=== PATIENT | male | born 1950 | race Caucasian/White ===

== ENCOUNTER 2022-09-11 14:39 | Emergency (ER) | payer OTHER, BC ==
[~2022-09-11] VITALS: Ht 170.2 cm; Wt 63.0 kg
[2022-09-11 14:41] VITALS: BP 163/99
== END 2022-09-11 16:21 | disposition home or self-care (01) ==
LOC: ER 14:39
DX: M25.552 Pain in left hip (principal); I10 Essential (primary) hypertension; Z59.00 Homelessness unspecified; Z56.0 Unemployment, unspecified; Z88.8 Allergy status to other drugs, medicaments and biological substances
CPT/HCPCS: 72170; 99283

== ENCOUNTER 2023-02-17 18:59 | Inpatient (IN) | payer OTHER, BC ==
[~2023-02-17] VITALS: Ht 177.8 cm; Wt 64.2 kg
[2023-02-17 19:03] VITALS: TEMP 97.6
[2023-02-17 20:05] LABS: BASOPHILS # (AUTO) 0.1 X10'3 (0-0.2); BASOPHILS % (AUTO) 1.1 % (0-1); EOSINOPHILS # (AUTO) 0.3 X10'3 (0-0.9); EOSINOPHILS % (AUTO) 3.1 % (0-6); HEMOGLOBIN 13.6 g/dl (14.0-17.9); LYMPHOCYTES % (AUTO) 33.4 % (21-51); MEAN CORPUSCULAR HGB CONC 33.1 g/dL (33.0-36.5); MEAN CORPUSCULAR VOLUME 90.6 FL (78-98); MEAN PLATELET VOLUME 7.7 FL (7.4-10.4); MONOCYTES # (AUTO) 0.8 X10'3 (0-0.9); MONOCYTES % (AUTO) 9.3 % (2-12); NEUTROPHILS # (AUTO) 4.7 X10'3 (1.8-7.7); NEUTROPHILS % (AUTO) 53.1 % (42-75); PLATELET COUNT 232 X10'3 (140-440); RED BLOOD COUNT 4.53 X10'6 (4.70-6.10); RED CELL DISTRIBUTION WIDTH 14.6 % (11.5-14.5); WHITE BLOOD COUNT 8.8 X10'3 (4.5-11.0)
[2023-02-17 20:15] LABS: ALANINE AMINOTRANSFERASE 60 U/L (12-78); ALBUMIN 3.4 G/DL (3.4-5.0); ALBUMIN/GLOBULIN RATIO 0.8 (1.1-1.5); ALKALINE PHOSPHATASE 85 IU/L (46-116); ANION GAP 7 (8-16); ASPARTATE AMINO TRANSFERASE 56 U/L (10-37); BILIRUBIN,TOTAL 0.3 MG/DL (0.1-1.0); BLOOD UREA NITROGEN 22 MG/DL (7-18); BUN/CREATININE RATIO 13.5 (10.0-20.0); CALCIUM 8.9 MG/DL (8.5-10.1); CHLORIDE 107 MMOL/L (99-107); CREATININE 1.63 MG/DL (0.60-1.10); GLUCOSE 98 MG/DL (70-104); POTASSIUM 3.9 MMOL/L (3.5-5.1); SODIUM 140 MMOL/L (135-145); TOTAL CARBON DIOXIDE 26.4 MMOL/L (24-32); TOTAL PROTEIN 7.7 G/DL (6.4-8.2); eCRCL 36 ML/MIN; eGFR 42 ML/MIN
[2023-02-17 20:23] LABS: PRO BRAIN NATRIURETIC PEPTIDE 274 PG/ML (0-125)
[2023-02-17] MEDS ORDERED: furosemide 10 MG/1 ML 10ml inj IV ONE (23:20)
[2023-02-17] MEDS ORDERED: acetaminophen 325mg tablet PO ONE (23:20)
[2023-02-17] MEDS ORDERED: enalaprilat dihydrate 2.5mg/2ml vial IV ONE (23:20)
[2023-02-17] MEDS ORDERED: nicotine 21mg patch - 24 hr TD ONE (23:20)
[2023-02-18 00:51] LABS: URINE AMPHETAMINE SCREEN NEGATIVE (Neg); URINE BARBITUATE SCREEN NEGATIVE (Neg); URINE BENZODIAZEPINES SCREEN NEGATIVE (Neg); URINE CANNABINOID SCREEN NEGATIVE (Neg); URINE COCAINE SCREEN NEGATIVE (Neg); URINE OPIATE SCREEN NEGATIVE (Neg); URINE PHENCYCLIDINE SCREEN NEGATIVE (Neg)
--- NOTE | 2023-02-18 01:51 | NUR ---
400mL put, post lasix. Urine c/y malodrous.
[2023-02-18] MEDS ORDERED: ondansetron/PF 4mg/2ml inj IV PRN (03:40)
[2023-02-18] MEDS ORDERED: magnesium 2GM in 50ml NS 50 ML IV PRN (03:40)
[2023-02-18] MEDS ORDERED: hydrALAZINE 20mg/ml inj. IV PRN (03:40)
[2023-02-18] MEDS ORDERED: mag hydrox/Alum hydrox/simeth 30ml oral suspension PO PRN (03:40)
[2023-02-18] MEDS ORDERED: magnesium 4gm in 100ml NS 100 ML IV PRN (03:40)
[2023-02-18] MEDS ORDERED: potassium Cl 20 mEq SR tablet PO PRN ×2 (03:40)
[2023-02-18] MEDS ORDERED: potassium Cl 40MEQ/1/2NS 520ml 520 ML IV PRN (03:40)
[2023-02-18] MEDS ORDERED: acetaminophen 325mg tablet PO PRN (03:40)
--- NOTE | 2023-02-18 03:54 | NUR ---
Urine output 600mL
--- NOTE | 2023-02-18 06:24 | NUR ---
Assumed care of patient. Pt sitting up in bed, alert, oriented. RN helped pt reposition head of bed and decreased noise stimulation so pt could rest.
[2023-02-18] MEDS ORDERED: docusate sod 100mg capsule PO SCH (08:00)
[2023-02-18] MEDS ORDERED: K and/or MAG REPLACEMENT MC SCH (08:00)
--- NOTE | 2023-02-18 08:23 | NUR ---
pt eating breakfast
[2023-02-18 08:39] LABS: BASOPHILS # (AUTO) 0.1 X10'3 (0-0.2); BASOPHILS % (AUTO) 0.8 % (0-1); EOSINOPHILS # (AUTO) 0.2 X10'3 (0-0.9); HEMATOCRIT 41.5 % (42.0-52.0); HEMOGLOBIN 13.9 g/dl (14.0-17.9); LYMPHOCYTES # (AUTO) 2.2 X10'3 (1.1-4.8); LYMPHOCYTES % (AUTO) 27.6 % (21-51); MEAN CORPUSCULAR HEMOGLOBIN 30.1 PG (27.0-31.0); MEAN CORPUSCULAR HGB CONC 33.5 g/dL (33.0-36.5); MEAN CORPUSCULAR VOLUME 89.9 FL (78-98); MEAN PLATELET VOLUME 7.4 FL (7.4-10.4); MONOCYTES # (AUTO) 0.7 X10'3 (0-0.9); MONOCYTES % (AUTO) 8.4 % (2-12); NEUTROPHILS # (AUTO) 4.9 X10'3 (1.8-7.7); NEUTROPHILS % (AUTO) 60.2 % (42-75); PLATELET COUNT 239 X10'3 (140-440); RED BLOOD COUNT 4.61 X10'6 (4.70-6.10); RED CELL DISTRIBUTION WIDTH 14.9 % (11.5-14.5); WHITE BLOOD COUNT 8.1 X10'3 (4.5-11.0)
[2023-02-18 09:24] LABS: ALANINE AMINOTRANSFERASE 62 U/L (12-78); ALBUMIN 3.4 G/DL (3.4-5.0); ALBUMIN/GLOBULIN RATIO 0.8 (1.1-1.5); ALKALINE PHOSPHATASE 85 IU/L (46-116); ANION GAP 9 (8-16); ASPARTATE AMINO TRANSFERASE 63 U/L (10-37); BILIRUBIN,TOTAL 0.6 MG/DL (0.1-1.0); BLOOD UREA NITROGEN 20 MG/DL (7-18); BUN/CREATININE RATIO 12.6 (10.0-20.0); CALCIUM 8.9 MG/DL (8.5-10.1); CHLORIDE 107 MMOL/L (99-107); CREATININE 1.59 MG/DL (0.60-1.10); GLUCOSE 92 MG/DL (70-104); POTASSIUM 3.9 MMOL/L (3.5-5.1); SODIUM 141 MMOL/L (135-145); TOTAL PROTEIN 7.7 G/DL (6.4-8.2); eCRCL 37 ML/MIN; eGFR 43 ML/MIN
--- NOTE | 2023-02-18 10:13 | NUR ---
Patient in room ED 3. I have received report from Mona in the ED and had the opportunity to ask questions and assume patient care.
[2023-02-18 10:30] VITALS: BP 147/84; PULSE 57; RESP 16; O2SAT 95
[2023-02-18 10:45] VITALS: RESP 16; O2SAT 95
[2023-02-18] MEDS ORDERED: LOSA-415 PO (12:18)
[2023-02-18] MEDS ORDERED: NICO-631 TD (15:51)
--- NOTE | 2023-02-18 16:45 | NUR ---
Reviewed discharge instructions with patient. patient verbalized understanding and was grateful for the care he received. Patient is fully independent. He dressed himself, gathered his belongings and received his home meds that were stored in the pharmacy. Patient was seen by social services counselor and provided with a list of community resources. Cab was called for patient. Patient chose to wait in the lobby for the cab to arrive [facility].
[2023-02-18] MEDS ORDERED: enoxaparin 40mg/0.4ml syringe SQ SCH (20:00)
[2023-02-19] MEDS ORDERED: nicotine 14mg patch - 24hr TD SCH (08:00)
[2023-02-19] MEDS ORDERED: losartan 50mg tablet PO SCH (08:00)
== END 2023-02-18 16:36 | disposition home or self-care (01) | DRG 683 ==
LOC: ER 19:00 → ED HOLD 02-18 03:43 → EDBEDREQ 02-18 03:54 → ORTHO 4S 02-18 10:20
PROVIDERS: ADMIT Family Medicine; ATTEND Family Medicine
DX: N17.0 Acute kidney failure with tubular necrosis (principal); I16.1 Hypertensive emergency; I10 Essential (primary) hypertension; F17.219 Nicotine dependence, cigarettes, with unspecified nicotine-induced disorders; G89.29 Other chronic pain; M54.9 Dorsalgia, unspecified; R00.1 Bradycardia, unspecified; Z88.6 Allergy status to analgesic agent; Z71.6 Tobacco abuse counseling; Z86.73 Personal history of transient ischemic attack (TIA), and cerebral infarction without residual deficits; Z82.49 Family history of ischemic heart disease and other diseases of the circulatory system; Z91.148 Patient's other noncompliance with medication regimen for other reason; Z82.0 Family history of epilepsy and other diseases of the nervous system
CPT/HCPCS: 36415; 70450; 71045; 80053; 80305; 83880; 84484; 85025; 87081; 93005; 96374; 96375; 99285; G0378; J1940; J3490

== ENCOUNTER 2023-06-17 08:07 | Emergency (ER) | payer OTHER, BC ==
[~2023-06-17] VITALS: Ht 177.8 cm; Wt 63.0 kg
[~2023-06-17 08:07] MED LIST: LOSA-415 PO; NICO-631 TD
[2023-06-17 08:30] VITALS: TEMP 97.5
[2023-06-17] MEDS ORDERED: AMLO2.5T2 PO (08:46)
[2023-06-17] MEDS ORDERED: AMLO10TA13 PO (08:46)
[2023-06-17 09:17] LABS: BASOPHILS % (AUTO) 0.1 % (0-1); EOSINOPHILS # (AUTO) 0.2 X10'3 (0-0.9); EOSINOPHILS % (AUTO) 2.2 % (0-6); HEMATOCRIT 43.7 % (42.0-52.0); HEMOGLOBIN 14.6 g/dl (14.0-17.9); LYMPHOCYTES # (AUTO) 2.5 X10'3 (1.1-4.8); LYMPHOCYTES % (AUTO) 23.4 % (21-51); MEAN CORPUSCULAR HEMOGLOBIN 30.9 PG (27.0-31.0); MEAN CORPUSCULAR HGB CONC 33.3 g/dL (33.0-36.5); MEAN CORPUSCULAR VOLUME 92.7 FL (78-98); MEAN PLATELET VOLUME 7.6 FL (7.4-10.4); MONOCYTES # (AUTO) 0.9 X10'3 (0-0.9); MONOCYTES % (AUTO) 8.5 % (2-12); NEUTROPHILS # (AUTO) 6.9 X10'3 (1.8-7.7); NEUTROPHILS % (AUTO) 65.8 % (42-75); PLATELET COUNT 278 X10'3 (140-440); RED BLOOD COUNT 4.72 X10'6 (4.70-6.10); WHITE BLOOD COUNT 10.5 X10'3 (4.5-11.0)
[2023-06-17 10:15] LABS: APTT 30 SECONDS (22-32); INR 1.1 INR; PROTHROMBIN TIME 11.4 SECONDS (9.0-12.0)
[2023-06-17] MEDS ORDERED: iohexol 350MG/ML 100ml bottle IV ONE (10:16)
[2023-06-17 11:09] LABS: ALBUMIN 3.6 G/DL (3.4-5.0); ANION GAP 9 (8-16); BLOOD UREA NITROGEN 23 MG/DL (7-18); BUN/CREATININE RATIO 13.6 (10.0-20.0); CALCIUM 8.6 MG/DL (8.5-10.1); CHLORIDE 108 MMOL/L (99-107); CREATININE 1.69 MG/DL (0.60-1.10); GLUCOSE 82 MG/DL (70-104); POTASSIUM 4.1 MMOL/L (3.5-5.1); SODIUM 140 MMOL/L (135-145); TOTAL CARBON DIOXIDE 23.1 MMOL/L (24-32); eCRCL 34 ML/MIN; eGFR 40 ML/MIN
[2023-06-17] MEDS: aspirin 325mg tablet PO ONE (12:56)
[2023-06-17 13:14] VITALS: BP 165/99; PULSE 72; RESP 16; O2SAT 96
== END 2023-06-17 13:19 | disposition left against medical advice (07) ==
LOC: ER 08:07
DX: G45.9 Transient cerebral ischemic attack, unspecified (principal)
CPT/HCPCS: 36415; 70450; 70496; 70498; 71045; 80048; 82948; 85025; 85610; 85730; 93005; 99285; J3490; J7030; Q9967